=== PATIENT | female | born 1965 | race Caucasian/White ===

== ENCOUNTER 2017-08-25 20:07 | Emergency (ER) | payer OTHER ==
[~2017-08-25] VITALS: Ht 182.9 cm; Wt 90.7 kg
[~2017-08-25 20:07] MED LIST: CARVEDILOL12.5 MG PO; FLEXERIL PO; HYDROCHLOROTHIA25 M1 PO; IBUPROFEN 800800 MG PO; LISINOPRIL40 MG PO; NORCO 5-325 TA1 EACH PO; VITAMIN B-12500 MCG PO; XANAX 0.25 MG0.25 MG PO
[2017-08-25] MEDS ORDERED: NORCO 5-325 TA1 EACH PO (22:01)
[2017-08-25] MEDS ORDERED: IBUPROFEN 800800 M1 PO (22:01)
[2017-08-25] MEDS ORDERED: KEFLEX500 M1 PO (22:01)
[2017-08-25 22:15] VITALS: BP 139/82
== END 2017-08-25 22:16 | disposition home or self-care (01) ==
LOC: M.ERS 20:07
DX: S62.637A Displaced fracture of distal phalanx of left little finger, initial encounter for closed fracture (principal); S60.152A Contusion of left little finger with damage to nail, initial encounter; I10 Essential (primary) hypertension; Z96.641 Presence of right artificial hip joint; W23.0XXA Caught, crushed, jammed, or pinched between moving objects, initial encounter; Y93.89 Activity, other specified; Y92.89 Other specified places as the place of occurrence of the external cause; Y99.0 Civilian activity done for income or pay

== ENCOUNTER 2018-05-01 14:41 | Emergency (ER) | payer OTHER ==
[~2018-05-01] VITALS: Ht 185.4 cm; Wt 112.0 kg
[~2018-05-01 14:41] MED LIST changes: +IBUPROFEN 800800 M1 PO; +KEFLEX500 M1 PO
[2018-05-01] MEDS ORDERED: ZESTRIL20 MG PO (15:02)
[2018-05-01 15:26] LABS: ABSOLUTE BASOPHILS 0.1 thou/uL (0.0-0.2); ABSOLUTE LYMPHOCYTES 2.7 thou/uL (0.8-5.3); ABSOLUTE MONOCYTES 0.5 thou/uL (0.0-1.2); ABSOLUTE NEUTROPHILS 4.4 thou/uL (1.6-8.1); BASOPHILS 0.9 %; EOSINOPHILS 0.2 %; HEMATOCRIT 41.1 % (37.0-47.0); LYMPHOCYTES 35.2 %; MCH 30.9 pg (26.0-34.0); MCHC 34.1 g/dL (28.0-37.0); MCV 90.4 fL (80.0-100.0); MONOCYTES 6.6 %; MPV 7.3 fl. (7.2-11.1); NUCLEATED RBCS 0 /100WBC; PLATELET COUNT* 275 thou/uL (150-400); POLYS 57.1 %; RBC 4.54 mil/uL (4.20-5.00); RDW-CV 13.6 % (10.5-14.5); WBC 7.8 thou/uL (4.0-11.0)
[2018-05-01 15:34] LABS: CALCIUM 8.6 mg/dL (8.5-10.1); CREATININE 1.2 mg/dL (0.6-1.3); POTASSIUM 3.3 mmol/L (3.5-5.1)
[2018-05-01 17:03] LABS: URINE BILIRUBIN NEGATIVE (Negative); URINE BLOOD NEGATIVE (Negative); URINE CLARITY CLEAR; URINE COLOR YELLOW; URINE GLUCOSE-RANDOM NEGATIVE (Negative); URINE KETONES NEGATIVE (Negative); URINE LEUKOCYTES-REFLEX 1+ (Negative); URINE NITRITE-REFLEX NEGATIVE (Negative); URINE PROTEIN NEGATIVE (Negative); URINE SPECIFIC GRAVITY <= 1.005 (1.005-1.030); URINE UROBILINOGEN 0.2 E.U./dl (0.2-1.0)
[2018-05-01 17:10] LABS: CRYSTALS None Seen /LPF (None Seen); SQUAMOUS >10 Many /LPF (0-3)
[2018-05-01 17:11] LABS: BACTERIA-REFLEX 1-9 Few /HPF (None Seen); CASTS None Seen /LPF (None Seen); MUCUS None Seen strn/LPF (None Seen); URINE RBC None Seen /HPF (0-2); URINE WBC-REFLEX 0-5 Rare /HPF (0-5)
[2018-05-01 17:17] LABS: AMP/METHAMP POSITIVE (Negative); BARBITURATES Negative (Negative); BENZODIAZEPINES POSITIVE (Negative); COCAINE Negative (Negative); METHADONE Negative (Negative); OPIATES Negative (Negative); PCP Negative (Negative); THC POSITIVE (Negative)
[2018-05-01] MEDS ORDERED: BACTROBAN CREAM30 G1 TOP (17:35)
[2018-05-01 17:44] VITALS: BP 206/118
--- NOTE | 2018-05-02 12:56 | EKG ---
[place] [address] ELECTROCARDIOGRAM REPORT Name: KAREN PEÑA Room: [facility]#: [id number] Admission: 05/01/18 Attend Phys: Discharge: 05/01/18 Date of : 63 Report #: [id number] THIS REPORT FOR: //name// [facility] ED Test Date: 2018-05-01 Test Time: 15:14:07 Pat Name: KAREN PEÑA Department: Room: Gender: F [employer]: DOC : 1965 Requested By: Renny Barlow Order Number: [id number] MD: Refugio Ayers Measurements Intervals [place] Rate: 89 P: 34 [place]: 142 QRS: 18 QRSD: 91 T: 108 QT: 408 QTc: 497 Interpretive Statements Sinus rhythm Left atrial enlargement LVH with secondary repolarization abnormality Anterior ST elevation, probably due to LVH Borderline prolonged QT interval Compared to ECG 12/01/2011 08:33:34 Early repolarization now present ST (T wave) changes have occurred Electronically Signed On 05-02-2018 12:55:43 CDT by Refugio Ayers [email or web address] <ELECTRONICALLY SIGNED> By: Refugio Ayers MD, [facility] 05/02/18 [id number] 1514 Refugio Ayers MD, [facility] /EPI
== END 2018-05-01 17:48 | disposition home or self-care (01) ==
LOC: M.ERS 14:41
PROVIDERS: Nurse Practitioner Psychiatric/Mental Health
DX: I10 Essential (primary) hypertension (principal); E87.6 Hypokalemia; L98.8 Other specified disorders of the skin and subcutaneous tissue; F15.20 Other stimulant dependence, uncomplicated; F12.20 Cannabis dependence, uncomplicated; Z88.5 Allergy status to narcotic agent; Z96.641 Presence of right artificial hip joint; Z79.899 Other long term (current) drug therapy

== ENCOUNTER 2018-12-15 04:30 | Emergency (ER) | payer OTHER ==
[~2018-12-15] VITALS: Ht 182.9 cm; Wt 90.7 kg
[~2018-12-15 04:30] MED LIST changes: +BACTROBAN CREAM30 G1 TOP; +ZESTRIL20 MG PO
[2018-12-15] MEDS ORDERED: FLONASE 0.05%50 MCG (04:45)
[2018-12-15 05:24] LABS: HEMATOCRIT 42.8 % (37.0-47.0); HEMOGLOBIN 14.9 gm/dL (12.0-15.0); MCHC 34.8 g/dL (28.0-37.0); MCV 89.3 fL (80.0-100.0); MPV 7.7 fl. (7.2-11.1); RBC 4.79 mil/uL (4.20-5.00); RDW-CV 13.5 % (10.5-14.5); WBC 10.6 thou/uL (4.0-11.0)
[2018-12-15 05:42] LABS: ANION GAP 13 mmol/L (7-16); BUN 14 mg/dL (7-18); CALCIUM 9.2 mg/dL (8.5-10.1); CHLORIDE 103 mmol/L (98-107); CO2 26 mmol/L (21-32); CREATININE 0.9 mg/dL (0.6-1.3); GLUCOSE 153 mg/dL (70-99); POTASSIUM 3.2 mmol/L (3.5-5.1); SODIUM 142 mmol/L (136-145); TROPONIN-I LEVEL <0.06 ng/mL (<0.06)
[2018-12-15] MEDS ORDERED: HYDROCODONE-AP1 EAC6 PO (05:55)
[2018-12-15 06:20] VITALS: BP 171/102
--- NOTE | 2018-12-15 11:45 | EKG ---
[place] [address] ELECTROCARDIOGRAM REPORT Name: KAREN PEÑA Room: [facility]#: [id number] Admission: 12/15/18 Attend Phys: Discharge: 12/15/18 Date of : 63 Report #: [id number] THIS REPORT FOR: //name// [facility] ED Test Date: 2018-12-15 Test Time: 05:38:19 Pat Name: KAREN PEÑA Department: Room: Gender: F [employer] Header: [place] : 1965 Requested By: Neil Lewis Order Number: [id number] MD: Refugio Ayers Measurements Intervals [place] Rate: 66 P: 34 [place]: 147 QRS: 16 QRSD: 90 T: 163 QT: 432 QTc: 453 Interpretive Statements Sinus rhythm Probable left atrial enlargement LVH with secondary repolarization abnormality Anterior ST elevation, probably due to LVH Compared to ECG 05/01/2018 15:14:07 No significant changes Electronically Signed On 12-15-2018 11:45:18 CDT by Refugio Ayers [email or web address] <ELECTRONICALLY SIGNED> By: Refugio Ayers MD, [facility] 12/15/18 1145 0538 0538 Refugio Ayers MD, FAC /EPI
== END 2018-12-15 06:20 | disposition home or self-care (01) ==
LOC: M.ERS 04:30
PROVIDERS: Emergency Medicine Emergency Medical Services
DX: F41.9 Anxiety disorder, unspecified (principal); M13.852 Other specified arthritis, left hip; I10 Essential (primary) hypertension; Z96.641 Presence of right artificial hip joint; F17.210 Nicotine dependence, cigarettes, uncomplicated; Z88.5 Allergy status to narcotic agent; Z88.8 Allergy status to other drugs, medicaments and biological substances

== ENCOUNTER 2019-02-13 13:08 | Emergency (ER) | payer OTHER ==
[~2019-02-13] VITALS: Ht 182.9 cm; Wt 113.4 kg
[~2019-02-13 13:08] MED LIST changes: +FLONASE 0.05%50 MCG; +HYDROCODONE-AP1 EAC6 PO
[2019-02-13] MEDS ORDERED: LISINOPRIL20 MG PO (14:37)
[2019-02-13] MEDS ORDERED: CLEOCIN HCL150 MG PO (14:37)
[2019-02-13] MEDS ORDERED: MUPIROCIN15 GM TOP (14:37)
[2019-02-13 15:05] VITALS: BP 180/96
== END 2019-02-13 15:05 | disposition home or self-care (01) ==
LOC: M.ERS 13:08
DX: S81.801A Unspecified open wound, right lower leg, initial encounter (principal); I10 Essential (primary) hypertension; F41.9 Anxiety disorder, unspecified; F17.210 Nicotine dependence, cigarettes, uncomplicated; Z88.6 Allergy status to analgesic agent; Z88.5 Allergy status to narcotic agent; Z96.641 Presence of right artificial hip joint; X58.XXXA Exposure to other specified factors, initial encounter; Y92.89 Other specified places as the place of occurrence of the external cause; Y93.89 Activity, other specified; Y99.8 Other external cause status

== ENCOUNTER 2020-07-25 14:14 | Emergency (ER) | payer OTHER ==
[~2020-07-25] VITALS: Ht 188 cm; Wt 107.5 kg
[~2020-07-25 14:14] MED LIST changes: +CLEOCIN HCL150 MG PO; +LISINOPRIL20 MG PO; +MUPIROCIN15 GM TOP
[2020-07-25] MEDS ORDERED: CLONAZEPAM 0.50.5 M1 PO (14:23)
[2020-07-25] MEDS ORDERED: CELEXA 20 MG TA20 MG PO (14:23)
[2020-07-25] MEDS ORDERED: VISTARIL50 MG PO (14:24)
[2020-07-25] MEDS ORDERED: LISINOPRIL40 MG PO (14:50)
[2020-07-25] MEDS ORDERED: TRAMADOL 50 MG50 MG PO (14:50)
[2020-07-25 15:12] VITALS: BP 167/110
== END 2020-07-25 15:12 | disposition home or self-care (01) ==
LOC: M.ERS 14:14
DX: I10 Essential (primary) hypertension (principal); Z76.0 Encounter for issue of repeat prescription; G89.29 Other chronic pain; F17.210 Nicotine dependence, cigarettes, uncomplicated; Z88.5 Allergy status to narcotic agent; Z88.8 Allergy status to other drugs, medicaments and biological substances; Z96.641 Presence of right artificial hip joint